=== PATIENT | female | born 1975 | race African-American/Black ===

== ENCOUNTER 2016-06-11 23:54 | Emergency (ER) | payer MEDICAID ==
[~2016-06-11] VITALS: Ht 167.6 cm; Wt 104.9 kg
[2016-06-11 23:57] VITALS: BP 191/101; PULSE 97; RESP 15; TEMP 98.3; O2SAT 98
[2016-06-12 00:14] VITALS: BP 167/102; PULSE 92; RESP 16; O2SAT 98
--- NOTE | 2016-06-12 00:43 | PD ---
HPI Chief Complaint: Oral / Dental Pain or Problem Time Seen by Provider: 00:37 Travel History International Travel<30 days: No Contact w/Intl Traveler<30days: No Traveled to known affect area: No History of Present Illness HPI Patient comes in complaining of left lower molar dental pain began early yesterday morning and was constant in nature. Patient denies any radiation of the pain. Denies any fevers, chest pain, shortness of breath, headache, neck pain, or family history of heart disease. Patient states her symptoms improve by using Anbesol. Pain is worse with anything cold touching it or smoking. Patient states she last saw her dentist about 4 months ago and was told she had a have dental work done on affected tooth, but she has not had any work done yet. Patient reports she has a history of hypertension but only takes her medication as needed per her primary care doctor's instructions per patient. PFSH Past Medical History Asthma: Yes Cardiovascular Problems: Yes (HTN) Diminished Hearing: No Respiratory: Yes (BRONCHILITIS) ?: Not LMP: NOW : 0 Social History Alcohol Use: Yes Tobacco Use: Yes (OCCASIONALLY) Substance Use: No Allergies-Medications (Allergen,Severity, Reaction): Coded Allergies: No Known Allergies (Verified , 06/12/16) Reported Meds & Prescriptions Reported Meds & Active Scripts Active Naprosyn (Naproxen) 500 Mg Tab 500 Mg PO Q12HR PRN Clindamycin (Clindamycin HCl) 150 Mg Cap 2 Tab PO Q6H 10 Days Review of Systems Except as stated in HPI: all other systems reviewed are Neg Physical Exam Narrative GENERAL: Well-developed, overly nourished, in no acute distress, and non-ill appearing. SKIN: Warm and dry. HEAD: Atraumatic. Normocephalic. EYES: Pupils equal and round. EOMI. No scleral icterus. No injection or drainage. ENT: No nasal bleeding or discharge. Mucous membranes pink and moist. Tympanic membranes are pearly yates bilaterally. Uvula is midline. Patient is speaking in full sentences and swallowing own saliva. Patient reports pain to palpation over left lower molar. There is no visual or palpable abscess. Floor of the mouth, submental, submandibular are all soft to palpation. NECK: Trachea midline. No cervical lymphadenopathy. Supple. No nuclear rigidity. RESPIRATORY: No accessory muscle use. No respiratory distress. MUSCULOSKELETAL: No obvious deformities. No clubbing. No cyanosis. No edema. Full range of motion. NEUROLOGICAL: Awake and alert. No obvious cranial nerve deficits. Motor grossly within normal limits. Normal speech. PSYCHIATRIC: Appropriate mood and affect; insight and judgment normal. Data Data Last Documented VS Vital Signs Date Time Temp Pulse Resp B/P Pulse Ox O2 Delivery O2 Flow Rate FiO2 06/12/16 00:40 16 06/12/16 00:14 92 167/102 98 06/11/16 23:57 98.3 Room Air MDM Medical Decision Making Medical Screen Exam Complete: Yes Emergency Medical Condition: Yes Differential Diagnosis Dental infection, dental abscess, dentalgia, other Narrative Course The patient presented with dental pain. There is no fever. There is no significant facial swelling or evidence of cellulitis. There is no evidence of drainable abscess at this time. There is no evidence of significant deep or invading abscess at this time. The patient will be placed on antibiotics and pain medication. The patient was instructed to follow up with a dentist. The patient was given the dental referral sheet. Warnings were discussed with the patient regarding worsening of infection. The patient is to return if pain worsens, develops progressive swelling or facial redness or fever. The patient agrees with plan. The patient has a prior history of hypertension and admits to only taking them as needed per her primary care doctor's instructions. The patient has no symptoms as well. The patient denied headache, changes in vision, nausea, vomiting, dizziness, weakness or loss of sensation. The patient denied and chest , back or abdominal pain. The patient also denied any shortness of breath, dyspnea on exertion, orthopnea or PND. The patient denies any edema to extremities. The patients blood pressures at discharge were at an acceptable level. I discussed with the patient the importance of taking her antihypertensive as prescribed and to not skip doses or stop medications suddenly without instruction by their primary care physician. The patient was instructed to follow up and potential adjustment of blood pressure medications. Return warnings were given to the patient and the patient agreed with plan of care. Patient in no obvious distress upon re-evaluation. Patient was asked if they wanted to speak to my attending, which the patient did not wish to do at this time. Any questions/concerns in reference to patient diagnosis/condition discussed and clarified prior to patient's discharge. Reinforced sheer importance of close follow up with patient's primary physician or primary care clinic and dentist. Instructed patient to return to ED immediately, if symptoms return/worsen. Pt showed understanding of above instructions. Further instructions and recommendations were detailed in discharge paperwork. Pt ambulated without difficulty out of ED at discharge. Diagnosis Primary Impression: Dentalgia Patient Instructions: Dental Abscess (ED), Dental Caries (DC), General Instructions Additional Instructions: Follow-up with your primary care physician and dentist as soon as possible. Rinse mouth with warm salt water gargles. Take all medication as prescribed. Return to the emergency department if symptoms get worse. Med/Other Pt SpecificInfo: Prescription(s) given Scripts Naproxen (Naprosyn)500 Mg [id number] Mg PO Q12HR PRN (PAIN SCALE 1 TO 10) #14 TAB Ref 0 Prov:Bernice Nowak MD 06/12/16 Clindamycin 150 Mg Cap2 Tab PO Q6H 10 Days Ref 0 Prov:Bernice Nowak MD 06/12/16 Disposition: 01 DISCHARGE HOME Condition: Stable Toñito Rocha Jun 12, 2016 00:43
[2016-06-12] MEDS ORDERED: NAPR500 PO (00:44)
[2016-06-12] MEDS ORDERED: CLIN1CAP5 PO (00:44)
== END 2016-06-12 01:03 | disposition home or self-care (01) ==
LOC: NEPB 23:54
DX: K08.89 Other specified disorders of teeth and supporting structures (principal); I10 Essential (primary) hypertension; Z72.0 Tobacco use; Z87.09 Personal history of other diseases of the respiratory system; Z86.79 Personal history of other diseases of the circulatory system
CPT/HCPCS: 99282